=== PATIENT | female | born 1940 | race Caucasian/White ===

== ENCOUNTER 2020-03-19 23:49 | Inpatient (IN) | payer OTHER ==
[~2020-03-19] VITALS: Ht 162.6 cm; Wt 79.4 kg
[2020-03-19 23:58] VITALS: BP 172/63
[2020-03-20 00:25] LABS: ABSOLUTE BASOPHILS 0.1 thou/uL (0.0-0.2); ABSOLUTE EOSINOPHILS 0.2 thou/uL (0.0-0.7); ABSOLUTE LYMPHOCYTES 1.7 thou/uL (0.8-5.3); ABSOLUTE MONOCYTES 0.6 thou/uL (0.0-1.2); ABSOLUTE NEUTROPHILS 3.7 thou/uL (1.6-8.1); EOSINOPHILS 3.4 %; HEMATOCRIT 33.1 % (37.0-47.0); HEMOGLOBIN 11.4 gm/dL (12.0-15.0); LYMPHOCYTES 26.7 %; MCH 31.4 pg (26.0-34.0); MCHC 34.5 g/dL (28.0-37.0); MONOCYTES 9.6 %; MPV 10.1 fl. (7.2-11.1); NUCLEATED RBCS 0 /100WBC; PLATELET COUNT* 130 thou/uL (150-400); POLYS 59.3 %; RBC 3.64 mil/uL (4.20-5.00); RDW-CV 14.5 % (10.5-14.5); WBC 6.3 thou/uL (4.0-11.0)
[2020-03-20 00:38] LABS: APTT 33.9 Seconds (25.0-31.3); PROTIME 20.2 Seconds (9.20-11.50)
[2020-03-20 00:49] LABS: CALCIUM 8.5 mg/dL (8.5-10.1); CREATININE 1.2 mg/dL (0.6-1.3); POTASSIUM 5.1 mmol/L (3.5-5.1)
[2020-03-20 01:00] LABS: ALBUMIN 3.6 g/dL (3.4-5.0); TOTAL BILIRUBIN 0.3 mg/dL (<0.1-1.0); TOTAL PROTEIN 6.2 g/dL (6.4-8.2)
[2020-03-20] MEDS ORDERED: LIPITOR40 MG PO (01:00)
[2020-03-20] MEDS ORDERED: LORATIDINE 10 M10 M1 PO (01:00)
[2020-03-20] MEDS ORDERED: DULOXETINE HCL60 MG PO (01:01)
[2020-03-20] MEDS ORDERED: CRAMP TABLET1 EACH PO (01:01)
[2020-03-20] MEDS ORDERED: PROAIR HFA8.5 GM INH (01:01)
[2020-03-20] MEDS ORDERED: FISH OIL 1,0001 EAC9 PO (01:02)
[2020-03-20] MEDS ORDERED: HAIR, SKIN & N1 EAC2 PO (01:03)
[2020-03-20] MEDS ORDERED: NEURONTIN 300M300 M2 PO (01:03)
[2020-03-20] MEDS ORDERED: SYNTHROID137 MC1 PO (01:04)
[2020-03-20] MEDS ORDERED: METFORMIN HCL500 M3 PO (01:05)
[2020-03-20] MEDS ORDERED: COZAAR 25 MG TA25 M1 PO (01:05)
[2020-03-20] MEDS ORDERED: MONTELUKAST SODI4 M1 PO (01:06)
[2020-03-20] MEDS ORDERED: SUPER THERAVIT1 EACH PO (01:06)
[2020-03-20] MEDS ORDERED: OMEPRAZOLE40 MG PO (01:07)
[2020-03-20] MEDS ORDERED: EVISTA60 MG PO (01:08)
[2020-03-20] MEDS ORDERED: ROPINIROLE HCL0.5 MG PO (01:08)
[2020-03-20] MEDS ORDERED: PROPRANOLOL PO (01:08)
[2020-03-20] MEDS ORDERED: INCRUSE ELLI62.5 MCG INH (01:09)
[2020-03-20] MEDS ORDERED: JANUVIA 50 MG T50 MG PO (01:09)
[2020-03-20] MEDS ORDERED: VITAMIN C1000 MG PO (01:10)
[2020-03-20] MEDS ORDERED: VITAMIN B COMP1 EACH PO (01:10)
[2020-03-20] MEDS ORDERED: VITAMIN D3 COM1 EACH PO (01:11)
[2020-03-20] MEDS ORDERED: WARFARIN SODIUM5 MG PO (01:11)
[2020-03-20] MEDS ORDERED: JANTOVEN7.5 MG PO (01:11)
[2020-03-20 02:35] VITALS: BP 134/46
[2020-03-20 02:55] VITALS: BP 135/49
[2020-03-20 08:00] VITALS: BP 122/58
[2020-03-20 12:23] VITALS: BP 134/50
[2020-03-20 13:27] LABS: INR 2.1; PROTIME 21.2 Seconds (9.20-11.50)
--- NOTE | 2020-03-20 14:33 | EKG ---
[place] [address] ELECTROCARDIOGRAM REPORT Name: JENNY QUEVEDO Room: [address] M.R.#: [id number] Admission: 03/20/20 Attend Phys: Riaz Machado, Discharge: Date of : 38 Date of Service: 03/19/20 2353 Report #: [id number] THIS REPORT FOR: //name// [facility] ED Test Date: 2020-03-19 Test Time: 23:53:58 Pat Name: JENNY QUEVEDO Department: Room: [facility] Gender: F Supervisor Assembly Room: : 1940 Requested By: Suzi Wagoner Order Number: [id number] MD: Bassam Martínez Measurements Intervals [place] Rate: 81 P: 58 [place]: 186 QRS: -14 QRSD: 98 T: 140 QT: 375 QTc: 436 Interpretive Statements Sinus rhythm Probable left atrial enlargement Repol abnrm, severe global ischemia (LM/MVD) No previous ECG available for comparison Electronically Signed On 03-20-2020 14:33:29 CDT by Bassam Martínez [email or web address] <ELECTRONICALLY SIGNED> By: Bassam Martínez MD, FACC 03/20/20 1433 2353 2353 Bassam Martínez MD, [facility] /EPI
--- NOTE | 2020-03-20 14:35 | EKG ---
[place] [address] ELECTROCARDIOGRAM REPORT Name: JENNY QUEVEDO Room: [address] M.R.#: [id number] Admission: 03/20/20 Attend Phys: Riaz Machado, Discharge: Date of : 38 Date of Service: 03/20/20 1323 Report #: [id number] THIS REPORT FOR: //name// [facility] Test Date: 2020-03-20 Test Time: 13:23:29 Pat Name: JENNY QUEVEDO Department: Room: [address] Gender: F Middle School Assistant Principal: AMY : 1940 Requested By: Tori Egan Order Number: [id number] Reading MD: Bassam Martínez Measurements Intervals [place] Rate: 74 P: 15 [place]: 191 QRS: 81 QRSD: 92 T: 266 QT: 382 QTc: 424 Interpretive Statements Sinus rhythm Borderline right axis deviation Repol abnrm suggests ischemia, diffuse leads Compared to ECG 03/19/2020 23:53:58 No significant changes Electronically Signed On 03-20-2020 14:35:25 CDT by Bassam Martínez [email or web address] <ELECTRONICALLY SIGNED> By: Bassam Martínez MD, FAC 03/20/20 1435 1323 1323 Bassam Martínez MD, [facility] /EPI
[2020-03-20 16:00] VITALS: BP 120/52
[2020-03-20 16:02] LABS: CHOLESTEROL 172 mg/dL (<200); HDL CHOLESTEROL 50 mg/dL (>40); LDL CHOLESTEROL 104 mg/dL (<100); TC:HDL 3.4 Ratio (Not establshd); TRIGLYCERIDE 93 mg/dL (<150); VLDL 19 mg/dL (<40)
[2020-03-20 16:03] LABS: SERUM ASSESSMENT Clear
[2020-03-20 20:00] VITALS: BP 143/56
[2020-03-21] VITALS (13 sets, daily range): BP systolic 121–172; BP diastolic 42–73
[2020-03-21 05:21] LABS: ABSOLUTE EOSINOPHILS 0.2 thou/uL (0.0-0.7); ABSOLUTE LYMPHOCYTES 1.6 thou/uL (0.8-5.3); ABSOLUTE MONOCYTES 0.5 thou/uL (0.0-1.2); ABSOLUTE NEUTROPHILS 2.9 thou/uL (1.6-8.1); BASOPHILS 0.8 %; EOSINOPHILS 3.9 %; HEMOGLOBIN 11.1 gm/dL (12.0-15.0); LYMPHOCYTES 30.6 %; MCH 31.7 pg (26.0-34.0); MCHC 34.7 g/dL (28.0-37.0); MCV 91.6 fL (80.0-100.0); MONOCYTES 9.7 %; NUCLEATED RBCS 0 /100WBC; PLATELET COUNT* 119 thou/uL (150-400); RDW-CV 14.6 % (10.5-14.5); WBC 5.3 thou/uL (4.0-11.0)
[2020-03-21 05:23] LABS: PROTIME 20.1 Seconds (9.20-11.50)
[2020-03-21 06:02] LABS: ALBUMIN 3.4 g/dL (3.4-5.0); CALCIUM 8.5 mg/dL (8.5-10.1); CREATININE 1.1 mg/dL (0.6-1.3); TOTAL BILIRUBIN 0.5 mg/dL (<0.1-1.0); TOTAL PROTEIN 5.9 g/dL (6.4-8.2)
[2020-03-22 03:48] VITALS: BP 142/70
[2020-03-22 04:44] LABS: HEMATOCRIT 30.4 % (37.0-47.0); HEMOGLOBIN 10.5 gm/dL (12.0-15.0); MCH 31.1 pg (26.0-34.0); MCHC 34.5 g/dL (28.0-37.0); MCV 90.4 fL (80.0-100.0); MPV 9.4 fl. (7.2-11.1); RBC 3.36 mil/uL (4.20-5.00); RDW-CV 14.2 % (10.5-14.5); WBC 6.7 thou/uL (4.0-11.0)
[2020-03-22 05:04] LABS: ALBUMIN 3.1 g/dL (3.4-5.0); CALCIUM 7.8 mg/dL (8.5-10.1); POTASSIUM 4.1 mmol/L (3.5-5.1); TOTAL BILIRUBIN 0.9 mg/dL (<0.1-1.0); TOTAL PROTEIN 5.9 g/dL (6.4-8.2); TROPONIN-I LEVEL 0.32 ng/mL (<0.06)
[2020-03-22 08:00] VITALS: BP 159/63
[2020-03-22] MEDS ORDERED: BRILINTA90 MG PO (08:23)
[2020-03-22] MEDS ORDERED: METOPROLOL SUCC25 M1 PO (08:23)
[2020-03-22 10:22] LABS: INR 1.2; PROTIME 12.7 Seconds (9.20-11.50)
[2020-03-22 12:28] VITALS: BP 130/59
[2020-03-22 12:29] VITALS: BP 121/51
--- NOTE | 2020-03-23 10:41 | CARD ---
[address] [address] CARDIAC CATH REPORT Name: JENNY QUEVEDO Room: [address]#: [id number] Admission: 03/21/20 Attend Phys: Riaz Machado MD Discharge: 03/22/20 Date of : 38 Report #: [id number] THIS REPORT FOR: //name// cc: Terri Greenberg Linda J. DO ~ APPROVED REPORT Study performed: 03/21/2020 14:58:51 Patient Details The patient is a 79 year-old female Event Personnel Khang Fleming Woods Overseer, Ariana Argueta RN, Magdi Hamlin RTR Scrub, Gerald Conley TAPE CUTTING MACHINE OPERATOR Monitor Procedures Performed Left heart catheterization selective coronary arteriography and PCI with deployment sequential drug-eluting stents at the site of 80% mid LAD stenosis Indication Unstable angina Risk Factors Hypercholesterolemia, Hypertension Admission/Lab Medications/Medications given during procedure Angiomax bolus and infusion Procedure Narrative The patient was brought electively to the Cardiac Catheterization Laboratory and was prepped and draped in a sterile manner. The right femoral was infiltrated with 2% Lidocaine subcutaneous anesthesia. A [place] 6 FR sheath was inserted into the right femoral artery. Coronary angiography was performed using coronary diagnostic catheters. The right coronary system was accessed and visualized with a JR4 6em6FBS 6fr catheter. The left coronary system was accessed and visualized with a JL4 6fr catheter. The left ventricle was accessed and visualized with a JR4 6fr - Pressures only catheter. Left ventricular/Aortic Valve gradient assessed via catheter pullback. Pre-demployment femoral angiogram was performed . Closure device was deployed with a Fr Angioseal STS 6Fr. [place] [address] CARDIAC CATH REPORT Name: JENNY QUEVEDO Room: [address]#: [id number] Admission: 03/21/20 Attend Phys: Riaz Machado MD Discharge: 03/22/20 Date of : 39 Report #: [id number] Intraoperative Conscious Sedation Sedation start time: 1609 Case end Time: 1706 Fentanyl 50 mcg Versed 2 mg Fluoro Time: 10.8 minutes Dose: DAP [id number] cGycm2 1751 mGy Contrast Type and Amount: Visipaque 290 ml Diagnostic Cath Left Main 0% narrowing LAD 80% mid vessel stenosis with 40% distal LAD narrowing Circumflex 30% proximal narrowing with tandem 50 and 70% stenoses of the first marginal branch of the dominant circumflex with 50% narrowing of the second marginal branch Right Coronary Nondominant vessel with 40% tubular proximalmid vessel narrowing Left Ventriculography Left Ventriculography was not performed. Hemodynamics The aortic pressure is 123/45 mmHg with a mean of 74 mmHg. The left ventricular pressure is 130/-12 mmHg with a mean of mmHg. The left ventricular end diastolic pressure is 13 mmHg. There was no gradient across the aortic valve upon pullback. PCI Technique Lesion Anticoagulation was achieved with Angiomax. Patient was preloaded with Angiomax IV 12 ml. Percutaneous coronary intervention was performed on the mid left anterior descending artery segment. The lesion stenosis prior to intervention was 80% with CLEO 3 flow. A 6FR LAUNCHER EBU 3.5 Guide Catheter was used to engage the ostium. A IG: BMW 190cm Interventional Guidewire was used to cross the lesion. BALLOON DILATION A Balloon catheter Trek RX 2.25 X 12 was inserted and inflated up to 15.00atm for 14seconds. Additional Inflation: 17.00atm for 10seconds. STENT DEPLOYMENT A stent [place] RX Stent 2.0X15mm, 2.0x8 was inserted and inflated up to 16.00, 14atm for 9, 10seconds. Additional Inflation: 20.00atm [place] 10[place] [address] CARDIAC CATH REPORT Name: SAEJENNY F Room: [address]#: [id number] Admission: 03/21/20 Attend Phys: Riaz Machado MD Discharge: 03/22/20 Date of : 38 Report #: [id number] Final angiography reveals 0 % stenosis with CLEO 3 flow. Conclusion 1. Significant coronary artery disease characterized by the following: A 80% mid LAD stenosis with 40% distal LAD narrowing B 30% proximal circumflex narrowing, this being a dominant vessel with tandem 50 and 70% first marginal stenosis and 50% second marginal stenosis C modest size nondominant right coronary with 40% tubular proximalmid vessel narrowing 2. No significant gradient on pullback across the bioprosthetic aortic valve 3. Normal left-sided hemodynamic study 4. Successful PCI with deployment of sequential drug-eluting stents at the site of 80% mid LAD stenosis with 0% residual narrowing and CLEO-3 flow to the distal vessel Recommendations Cardiac Risk Reduction Program Aggressive Medical Therapy Medications Administered Prasugrel <ELECTRONICALLY SIGNED> By: Khang Fleming MD, FACC 03/23/20 1041 104 1041Khang Fleming MD, FACC /INF
== END 2020-03-22 13:20 | disposition home or self-care (01) | DRG 247 ==
LOC: M.ERS 23:49 → M.2W 03-20 01:14 → M.TBA-ER 03-20 01:14 → M.2W 03-20 02:44
PROVIDERS: Internal Medicine; Nurse Practitioner; Personal Emergency Response Attendant; Registered Nurse; ADMIT Internal Medicine; ATTEND Internal Medicine
PROC: 027035Z Dilation of Coronary Artery, One Artery with Two Drug-eluting Intraluminal Devices, Percutaneous Approach (ICD-10-PCS; principal; 2020-03-21)
PROC: 4A023N7 Measurement of Cardiac Sampling and Pressure, Left Heart, Percutaneous Approach (ICD-10-PCS; principal; 2020-03-21)
PROC: B211YZZ Fluoroscopy of Multiple Coronary Arteries using Other Contrast (ICD-10-PCS; principal; 2020-03-21)
DX: I21.4 Non-ST elevation (NSTEMI) myocardial infarction (principal); D68.69 Other thrombophilia; J44.9 Chronic obstructive pulmonary disease, unspecified; I10 Essential (primary) hypertension; E11.9 Type 2 diabetes mellitus without complications; E78.00 Pure hypercholesterolemia, unspecified; G56.01 Carpal tunnel syndrome, right upper limb; E78.2 Mixed hyperlipidemia; Z20.828 Contact with and (suspected) exposure to other viral communicable diseases; E03.9 Hypothyroidism, unspecified; I48.0 Paroxysmal atrial fibrillation; I25.110 Atherosclerotic heart disease of native coronary artery with unstable angina pectoris; Z79.01 Long term (current) use of anticoagulants; Z79.84 Long term (current) use of oral hypoglycemic drugs; Z79.899 Other long term (current) drug therapy; Z95.2 Presence of prosthetic heart valve; Z88.8 Allergy status to other drugs, medicaments and biological substances; Z88.0 Allergy status to penicillin; Z87.891 Personal history of nicotine dependence

== ENCOUNTER → 2020-05-05 | Outpatient (CLI) | payer OTHER ==
[~2020-05-05] MED LIST: BRILINTA90 MG PO; COZAAR 25 MG TA25 M1 PO; CRAMP TABLET1 EACH PO; DULOXETINE HCL60 MG PO; EVISTA60 MG PO; FISH OIL 1,0001 EAC9 PO; FUROSEMIDE 40 M40 M1 PO; HAIR, SKIN & N1 EAC2 PO; INCRUSE ELLI62.5 MCG INH; JANTOVEN7.5 MG PO; JANUVIA 50 MG T50 MG PO; LIPITOR40 MG PO; LIPITOR80 MG PO; LORATIDINE 10 M10 M1 PO; METFORMIN HCL500 M3 PO; METOPROLOL SUCC25 M1 PO; MONTELUKAST SODI4 M1 PO; NEURONTIN 300M300 M2 PO; OMEPRAZOLE40 MG PO; PLAVIX 75 MG TA75 M1 PO; PROAIR HFA8.5 GM INH; PROPRANOLOL PO; PROVENTIL HFA6.7 G1 PO; ROPINIROLE HCL0.5 MG PO; SUPER THERAVIT1 EACH PO; SYNTHROID137 MC1 PO; VITAMIN B COMP1 EACH PO; VITAMIN C1000 MG PO; VITAMIN D3 COM1 EACH PO; WARFARIN SODIUM5 MG PO
== END ==
LOC: M.PC 10:30
PROVIDERS: ATTEND Physical Medicine & Rehabilitation
DX: M47.816 Spondylosis without myelopathy or radiculopathy, lumbar region (principal); I25.10 Atherosclerotic heart disease of native coronary artery without angina pectoris; I48.91 Unspecified atrial fibrillation; E11.9 Type 2 diabetes mellitus without complications; I25.2 Old myocardial infarction; M81.8 Other osteoporosis without current pathological fracture; Z98.1 Arthrodesis status; Z68.29 Body mass index [BMI] 29.0-29.9, adult; Z88.8 Allergy status to other drugs, medicaments and biological substances

== ENCOUNTER 2020-07-22 19:20 | Emergency (ER) | payer OTHER ==
[~2020-07-22] VITALS: Ht 162.6 cm; Wt 70.3 kg
[2020-07-22 20:08] LABS: ABSOLUTE BASOPHILS 0.1 thou/uL (0.0-0.2); ABSOLUTE EOSINOPHILS 0.2 thou/uL (0.0-0.7); ABSOLUTE LYMPHOCYTES 1.7 thou/uL (0.8-5.3); ABSOLUTE MONOCYTES 0.6 thou/uL (0.0-1.2); ABSOLUTE NEUTROPHILS 6.6 thou/uL (1.6-8.1); BASOPHILS 1.2 %; EOSINOPHILS 2.2 %; HEMATOCRIT 35.4 % (37.0-47.0); HEMOGLOBIN 11.8 gm/dL (12.0-15.0); LYMPHOCYTES 18.8 %; MCH 29.5 pg (26.0-34.0); MCHC 33.2 g/dL (28.0-37.0); MCV 88.9 fL (80.0-100.0); MONOCYTES 6.1 %; MPV 8.5 fl. (7.2-11.1); NUCLEATED RBCS 0 /100WBC; PLATELET COUNT* 319 thou/uL (150-400); POLYS 71.7 %; RBC 3.98 mil/uL (4.20-5.00); RDW-CV 15.4 % (10.5-14.5); WBC 9.2 thou/uL (4.0-11.0)
[2020-07-22 20:18] LABS: CALCIUM 8.7 mg/dL (8.5-10.1); CREATININE 2.5 mg/dL (0.6-1.3); POTASSIUM 4.8 mmol/L (3.5-5.1)
[2020-07-22 20:19] LABS: INR 1.8; PROTIME 18.2 Seconds (9.20-11.50)
[2020-07-22 20:29] LABS: ALBUMIN 3.6 g/dL (3.4-5.0); TOTAL BILIRUBIN 0.5 mg/dL (<0.1-1.0); TOTAL PROTEIN 7.4 g/dL (6.4-8.2)
[2020-07-22 20:40] LABS: URINE BILIRUBIN NEGATIVE (Negative); URINE BLOOD NEGATIVE (Negative); URINE CLARITY CLEAR; URINE COLOR YELLOW; URINE GLUCOSE-RANDOM NEGATIVE (Negative); URINE KETONES NEGATIVE (Negative); URINE LEUKOCYTES-REFLEX NEGATIVE (Negative); URINE NITRITE-REFLEX NEGATIVE (Negative); URINE PROTEIN NEGATIVE (Negative); URINE SPECIFIC GRAVITY 1.015 (1.005-1.030); URINE UROBILINOGEN 0.2 E.U./dl (0.2-1.0)
[2020-07-22 21:55] VITALS: BP 96/58
--- NOTE | 2020-07-23 09:53 | EKG ---
[place] [address] ELECTROCARDIOGRAM REPORT Name: JENNY QUEVEDO Room: [facility]#: [id number] Admission: 07/22/20 Attend Phys: Discharge: 07/22/20 Date of : 38 Date of Service: 07/22/201950 Report #: [id number] THIS REPORT FOR: //name// [facility] ED Test Date: 2020-07-22 Test Time: 19:51:14 Pat Name: JENNY QUEVEDO Department: Room: Gender: Skiagrapher: IRON : 1940 Requested By: Suzi Wagoner Order Number: [id number] MD: Khang Fleming Measurements Intervals [place] Rate: 78 P: 69 DC: 189 QRS: -3 QRSD: 103 T: 148 QT: 402 QTc: 458 Interpretive Statements Sinus rhythm Probable LVH with secondary repol abnrm Compared to ECG 03/20/2020 13:23:29 Possible ischemia no longer present Electronically Signed On 07-23-2020 9:53:34 WELDER FIRST CLASS by Khang Fleming [email or web address] <ELECTRONICALLY SIGNED> By: Khang Fleming MD, [facility] 07/23/20 0953 50 50 Khang Fleming MD, [facility] /EPI
== END 2020-07-22 21:55 | disposition home or self-care (01) ==
LOC: M.ERS 19:20
PROVIDERS: Personal Emergency Response Attendant
DX: R33.9 Retention of urine, unspecified (principal); N28.9 Disorder of kidney and ureter, unspecified; R79.89 Other specified abnormal findings of blood chemistry; J44.9 Chronic obstructive pulmonary disease, unspecified; E78.00 Pure hypercholesterolemia, unspecified; E11.9 Type 2 diabetes mellitus without complications; I50.9 Heart failure, unspecified; Z79.899 Other long term (current) drug therapy; Z79.01 Long term (current) use of anticoagulants; Z88.6 Allergy status to analgesic agent; Z88.5 Allergy status to narcotic agent; Z88.0 Allergy status to penicillin; Z88.8 Allergy status to other drugs, medicaments and biological substances

== ENCOUNTER 2020-07-23 21:56 | Emergency (ER) | payer OTHER ==
[~2020-07-23] VITALS: Ht 162.6 cm; Wt 69.4 kg
[2020-07-23 22:34] LABS: ABSOLUTE BASOPHILS 0.1 thou/uL (0.0-0.2); ABSOLUTE EOSINOPHILS 0.2 thou/uL (0.0-0.7); ABSOLUTE LYMPHOCYTES 1.8 thou/uL (0.8-5.3); ABSOLUTE MONOCYTES 0.5 thou/uL (0.0-1.2); ABSOLUTE NEUTROPHILS 6.9 thou/uL (1.6-8.1); BASOPHILS 0.8 %; EOSINOPHILS 1.7 %; HEMATOCRIT 34.9 % (37.0-47.0); HEMOGLOBIN 11.8 gm/dL (12.0-15.0); LYMPHOCYTES 18.9 %; MCH 29.9 pg (26.0-34.0); MCHC 33.8 g/dL (28.0-37.0); MCV 88.6 fL (80.0-100.0); MONOCYTES 5.6 %; MPV 8.4 fl. (7.2-11.1); NUCLEATED RBCS 0 /100WBC; PLATELET COUNT* 305 thou/uL (150-400); RBC 3.94 mil/uL (4.20-5.00); RDW-CV 15.3 % (10.5-14.5); WBC 9.4 thou/uL (4.0-11.0)
[2020-07-23 22:34] LABS: URINE BILIRUBIN NEGATIVE (Negative); URINE BLOOD 3+ (Negative); URINE CLARITY SL CLOUDY; URINE COLOR YELLOW; URINE GLUCOSE-RANDOM NEGATIVE (Negative); URINE KETONES NEGATIVE (Negative); URINE LEUKOCYTES-REFLEX NEGATIVE (Negative); URINE NITRITE-REFLEX NEGATIVE (Negative); URINE PROTEIN 2+ (Negative); URINE UROBILINOGEN 0.2 E.U./dl (0.2-1.0)
[2020-07-23 22:36] LABS: CALCIUM 9.3 mg/dL (8.5-10.1); POTASSIUM 4.7 mmol/L (3.5-5.1)
[2020-07-23 22:38] LABS: INR 1.9; PROTIME 19.7 Seconds (9.20-11.50)
[2020-07-23 22:40] LABS: ALBUMIN 3.6 g/dL (3.4-5.0); TOTAL BILIRUBIN 0.4 mg/dL (<0.1-1.0); TOTAL PROTEIN 7.3 g/dL (6.4-8.2)
[2020-07-23 22:41] LABS: MUCUS None Seen strn/LPF (None Seen); SQUAMOUS 4-10 Moderate /LPF (0-3); URINE RBC >20 Many /HPF (0-2)
[2020-07-23 22:42] LABS: CRYSTALS None Seen /LPF (None Seen); HYALINE CASTS 0-3 Few /LPF (None Seen); URINE WBC-REFLEX 0-5 Rare /HPF (0-5)
[2020-07-23 22:43] LABS: BACTERIA-REFLEX None Seen /HPF (None Seen)
[2020-07-24 00:53] VITALS: BP 108/49
== END 2020-07-24 00:53 | disposition home or self-care (01) ==
LOC: M.ERS 21:56
PROVIDERS: Emergency Medicine
DX: R31.9 Hematuria, unspecified (principal); E87.1 Hypo-osmolality and hyponatremia; J44.9 Chronic obstructive pulmonary disease, unspecified; E78.00 Pure hypercholesterolemia, unspecified; E11.9 Type 2 diabetes mellitus without complications; I11.0 Hypertensive heart disease with heart failure; I50.9 Heart failure, unspecified; Z79.899 Other long term (current) drug therapy; Z79.01 Long term (current) use of anticoagulants; Z88.6 Allergy status to analgesic agent; Z88.5 Allergy status to narcotic agent; Z88.8 Allergy status to other drugs, medicaments and biological substances; Z88.0 Allergy status to penicillin

== ENCOUNTER 2021-03-08 23:10 | Observation (INO) | payer OTHER ==
[~2021-03-08] VITALS: Ht 165.1 cm; Wt 73.5 kg
[2021-03-08 23:28] VITALS: BP 164/65
[2021-03-08] MEDS ORDERED: KLOR-CON M2020 MEQ PO (23:35)
[2021-03-08] MEDS ORDERED: COZAAR 25 MG TA25 MG PO (23:36)
[2021-03-08] MEDS ORDERED: REFRESH RELIEVA10 M1 EA. EYE (23:40)
[2021-03-08] MEDS ORDERED: CLARITIN10 M2 PO (23:41)
[2021-03-08] MEDS ORDERED: DULCOLAX STOOL100 M1 PO (23:43)
[2021-03-08] MEDS ORDERED: DRIZALMA SPRINK60 MG PO (23:43)
[2021-03-08] MEDS ORDERED: PLAVIX 75 MG TA75 MG PO (23:44)
[2021-03-08] MEDS ORDERED: VITAMIN D3125 MC1 PO (23:45)
[2021-03-08] MEDS ORDERED: PROPRANOLOL 20M20 M1 PO (23:45)
[2021-03-08] MEDS ORDERED: FARXIGA10 MG PO (23:48)
[2021-03-08] MEDS ORDERED: TRILOGY (23:48)
[2021-03-08] MEDS ORDERED: FLOVENT HFA 4444 MCG INH (23:49)
[2021-03-08] MEDS ORDERED: TRELEGY ELLIPT1 EACH INH (23:49)
[2021-03-09 00:26] LABS: ABSOLUTE BASOPHILS 0.1 thou/uL (0.0-0.2); ABSOLUTE EOSINOPHILS 0.2 thou/uL (0.0-0.7); ABSOLUTE LYMPHOCYTES 1.2 thou/uL (0.8-5.3); ABSOLUTE MONOCYTES 0.5 thou/uL (0.0-1.2); ABSOLUTE NEUTROPHILS 3.2 thou/uL (1.6-8.1); EOSINOPHILS 4.7 %; HEMATOCRIT 31.1 % (37.0-47.0); HEMOGLOBIN 10.1 gm/dL (12.0-15.0); LYMPHOCYTES 22.8 %; MCHC 32.5 g/dL (28.0-37.0); MONOCYTES 10.1 %; MPV 8.8 fl. (7.2-11.1); NUCLEATED RBCS 0 /100WBC; PLATELET COUNT* 150 thou/uL (150-400); POLYS 61.4 %; RDW-CV 15.7 % (10.5-14.5); WBC 5.1 thou/uL (4.0-11.0)
[2021-03-09 00:38] LABS: CALCIUM 8.7 mg/dL (8.5-10.1); CREATININE 1.4 mg/dL (0.6-1.3); POTASSIUM 4.1 mmol/L (3.5-5.1)
[2021-03-09 00:49] LABS: ALBUMIN 3.4 g/dL (3.4-5.0); MAGNESIUM 1.6 mg/dL (1.8-2.4); TOTAL BILIRUBIN 0.3 mg/dL (<0.1-1.0); TOTAL PROTEIN 6.3 g/dL (6.4-8.2)
[2021-03-09 01:30] LABS: URINE BILIRUBIN NEGATIVE (Negative); URINE BLOOD NEGATIVE (Negative); URINE CLARITY CLEAR; URINE COLOR YELLOW; URINE GLUCOSE-RANDOM 3+ (Negative); URINE KETONES NEGATIVE (Negative); URINE LEUKOCYTES-REFLEX 1+ (Negative); URINE NITRITE-REFLEX NEGATIVE (Negative); URINE PROTEIN NEGATIVE (Negative); URINE UROBILINOGEN 0.2 E.U./dl (0.2-1.0)
[2021-03-09 02:11] LABS: CASTS None Seen /LPF (None Seen); SQUAMOUS 4-10 Moderate /LPF (0-3)
[2021-03-09 02:12] LABS: URINE WBC-REFLEX 6-15 Few /HPF (0-5)
[2021-03-09 02:13] LABS: CRYSTALS None Seen /LPF (None Seen); URINE RBC 0-2 Rare /HPF (0-2)
[2021-03-09 04:10] LABS: INR 1.7; PROTIME 17.2 Seconds (9.20-11.50)
[2021-03-09 06:38] VITALS: BP 109/40
[2021-03-09 10:30] VITALS: BP 124/56
--- NOTE | 2021-03-09 10:57 | EKG ---
[place] [address] ELECTROCARDIOGRAM REPORT Name: JENNY QUEVEDO Room: [address] M.R.#: [id number] Admission: 03/09/21 Attend Phys: Chris Joy Discharge: Date of : 38 Date of Service: 03/08/21 2316 Report #: [id number] THIS REPORT FOR: //name// [facility] ED Test Date: 2021-03-08 Test Time: 23:16:46 Pat Name: JENNY QUEVEDO Department: Room: [facility] Gender: F Cloth Weigher: MR : 1940 Requested By: Cecilia Katz Order Number: [id number] MD: Joseph Schulz Measurements Intervals [place] Rate: 94 P: 93 NH: 72 QRS: -8 QRSD: 100 T: 153 QT: 369 QTc: 462 Interpretive Statements Sinus rhythm Short NH interval LVH with secondary repolarization abnormality Baseline wander in lead(s) II,III,aVF,V5,V6 Compared to ECG 07/22/2020 19:51:14 Short NH interval now present Electronically Signed On 03-09-2021 10:57:04 CDT by Joseph Schulz [email or web address] <ELECTRONICALLY SIGNED> By: Joseph Schulz MD, [facility] 03/09/21 1057 2316 2316 Joseph Schulz MD, [facility] /EPI
[2021-03-09 11:12] VITALS: BP 124/56
[2021-03-09 12:34] VITALS: BP 156/62
--- NOTE | 2021-03-09 14:41 | NUR ---
CM COMPLETED ASSESSEMENT WITH PT AND DTR AT BEDSIDE. PT LIVES WITH DTR, PT HAS WALKER SHE USES "SOMETIME." PT DOES NOT HAVE HH, BUT USED [facility]. PT DENIES HX WITH SNF. PT IS INDEPENDENT ADLS, ACTIVE AND COMPLETES OWN CHORES. PT HAS NO CM D/C NEEDS AT THIS TIME.
[2021-03-09 17:35] VITALS: BP 156/62
[2021-03-09 17:50] VITALS: BP 156/62
--- NOTE | 2021-03-10 11:11 | CON ---
[facility] [address] [place] [address] CONSULTATION Name: JENNY QUEVEDO Room: [address] Philipp Pathak#: [id number] Admission: 03/09/21 Attend Phys: Junaid Stone Discharge: 03/09/21 Date of : 38 Report #: [id number] THIS REPORT FOR: cc: Terri Greenberg,Terri Reynolds,Joseph Davalos MD [facility] ~ DATE OF CONSULTATION: 03/09/2021 HISTORY OF PRESENT ILLNESS: The patient is an 80-year-old single white female who I was asked to see in the emergency room today after she complained of chest pain. The patient states she has had a heart murmur for years. Finally, 6 years ago, she underwent aortic valve replacement using a tissue valve at [place]. In October of this year, she apparently had a heart attack and had two coronary stents placed at [place]. She has done well since that time. However, she is not very active at this time. She was doing well until yesterday. She [place] when she felt a pressure in her chest. It seemed to go into her back. She denied diaphoresis, nausea, shortness of breath. She had no recent fever, cough or bleeding. She denies any trauma to her chest or rash. She took a nitroglycerin, seemed to help. However, the pressures tended to come and go. After she got home, she called the EMS. She was brought here to [place] 10:00 last night. Today, she has had no further chest pressure. She denies any palpitations, syncope. PAST MEDICAL HISTORY: She had back surgery, cataract extraction, hysterectomy, colon resection, hypertension, diabetes. CURRENT MEDICATIONS: Consists of an inhaler, Lipitor, Plavix, Trelgey, Lasix, Neurontin, Synthroid, losartan. She is on warfarin. ALLERGIES: She has a previous intolerance to CODEINE and PENICILLIN. FAMILY HISTORY: Her father had a heart attack. SOCIAL HISTORY: She is , lives with daughter in [place]. Quit smoking years ago. No alcohol abuse. REVIEW OF SYSTEMS: She has no history of stroke, liver disease. She has chronic kidney disease. She wears glasses. No history of cancer. No psychiatric illness. No chronic skin condition. PHYSICAL EXAMINATION: GENERAL: Revealed an elderly, frail-appearing female, lying in bed. She appeared in no distress. VITAL SIGNS: She had a blood pressure 140/60, pulse 70. She is afebrile. HEENT: She was anicteric. Conjunctivae are pink[place] [address] CONSULTATION Name: JENNY QUEVEDO Room: [address] Lawson#: [id number] Admission: 03/09/21 Attend Phys: Junaid Stone Discharge: 03/09/21 Date of : 38 Report #: [id number] NECK: Veins not distended. No carotid bruits. NECK: Supple. CHEST: Clear to auscultation. HEART: Regular rate and rhythm. Grade II systolic ejection murmur. ABDOMEN: Soft. EXTREMITIES: Had no edema. Dorsalis pedis pulse 1+ . SKIN: Cool and dry. NEUROLOGIC: Nonfocal. LABORATORY DATA: Her ECG showed a sinus rhythm, left ventricular hypertrophy, repolarization changes. Her workup, she had a chest x-ray last night that showed mild vascular congestion. LABORATORY DATA: Sodium 144, creatinine 1.4, it has been as high as 2.5 in 2020. Her troponins, all less than 0.06. BNP 1099. Her white blood cell count 5.1; hematocrit 31, it was 33 back in 2020. Her COVID antigen stat test was negative. Urinalysis was negative for blood. Her INR was 1.7. IMPRESSION AND RECOMMENDATIONS: 1. Chest pressure, reason unclear. No evidence of pneumonia, myocardial infarction. Possible angina. I would continue medical therapy. I would not recommend stress testing at this time. 2. Previous replacement of aortic valve using a tissue valve. 3. Previous stents. The patient is on Plavix. 4. Hypertension. The patient is on ARB. 5. Diabetes. 6. Hyperlipidemia. The patient is on a statin drug. 7. History of asthma. 8. Chronic kidney disease. 9. Anemia. No history of bleeding. 10. Use of warfarin, reason unclear. No evidence of metallic valve, nor history of atrial fibrillation or stroke. I would defer to her primary care physician. <ELECTRONICALLY SIGNED> By: Joseph Schulz MD, FACC 03/10/21 1111 1529 2130Joseph Schulz MD, FAC /nt
== END 2021-03-09 14:55 | disposition home or self-care (01) ==
LOC: M.ERS 23:10 → M.TBA-ER 03-09 02:58
PROVIDERS: Emergency Medicine; ADMIT Internal Medicine; ATTEND Internal Medicine
DX: I20.9 Angina pectoris, unspecified (principal); E03.9 Hypothyroidism, unspecified; Z20.822 Contact with and (suspected) exposure to COVID-19; J44.9 Chronic obstructive pulmonary disease, unspecified; E78.00 Pure hypercholesterolemia, unspecified; E11.9 Type 2 diabetes mellitus without complications; I50.9 Heart failure, unspecified; Z87.891 Personal history of nicotine dependence; Z88.6 Allergy status to analgesic agent; Z88.5 Allergy status to narcotic agent; Z91.010 Allergy to peanuts; Z88.8 Allergy status to other drugs, medicaments and biological substances; Z88.0 Allergy status to penicillin; Z88.2 Allergy status to sulfonamides; Z88.1 Allergy status to other antibiotic agents; Z79.02 Long term (current) use of antithrombotics/antiplatelets; Z79.899 Other long term (current) drug therapy

== ENCOUNTER 2021-07-26 22:00 | Inpatient (IN) | payer OTHER ==
[~2021-07-26] VITALS: Ht 162.6 cm; Wt 173.7 kg
--- NOTE | ~2021-07-26 | CON ---
[address] [address] CONSULTATION Name: JENNY QUEVEDO Room: [address] IN M.R.#: [id number] Admission: 07/27/21 Attend Phys: Junaid Stone Discharge: Date of : 38 Report #: [id number] THIS REPORT FOR: cc: Terri Greenberg Linda J. DO Namin,Sakshi Syed MD ~ DATE OF CONSULTATION: 07/30/2021 REASON FOR CONSULTATION: Iron deficiency anemia. HISTORY OF PRESENT ILLNESS: This is an 80-year-old female who presented to hospital on 07/27/2021 with shortness of air and respiratory distress. The patient had reported that recently she was tested positive for COVID. She reports that she has been vaccinated for COVID. She has not received her booster as she says that it is not time of it yet. The patient initially got intubated and was just extubated this afternoon. We were consulted mainly in reference to her anemia. The patient denies any hematochezia, melena, or abdominal pain. She also denies any dysphagia or odynophagia, nausea, vomiting or hematemesis. She has had endoscopic evaluation dating back to almost 10 years ago. She does not recall what the results of her endoscopies were. PAST MEDICAL HISTORY: Significant for history of renal insufficiency, hypertension, gastroesophageal reflux disease, back pain, hyperlipidemia, hypothyroidism, anticoagulation therapy and chronic back pain. ALLERGIES: SIGNIFICANT TO ASPIRIN, CODEINE, LISINOPRIL, IBUPROFEN, PENICILLIN, VANCOMYCIN AND SULFA. MEDICATIONS: Please refer to MAR. SOCIAL HISTORY: The patient lives at home. Denies tobacco or alcohol use. She admits to receiving both doses of her COVID vaccination, but cannot tell me if she received Moderna or Pfizer. She reports that she has not received her booster as it is not time for it yet. FAMILY HISTORY: Noncontributory. PHYSICAL EXAMINATION: GENERAL: Reveals normal vitals. The patient was just extubated and chewing on ice chips. She is well, alert and oriented. VITAL SIGNS: Blood pressure is 136/56, respirations 19, pulse 67, temperature 97.9[place] [address] CONSULTATION Name: JENNY QUEVEDO Room: [address] IN [facility]#: [id number] Admission: 07/27/21 Attend Phys: Junaid Stone Discharge: Date of : 39 Report #: [id number] LUNGS: Crackles at the bases. CARDIOVASCULAR: Regular rate. ABDOMEN: Soft, nontender, nondistended. Bowel sounds are positive. NEUROLOGIC: The patient is alert and oriented x3. LABORATORY DATA: Reveals sodium of 143, potassium 4.3, BUN is 40, creatinine 1.1, glucose 263. AST is 27, alkaline phosphatase 34, total bilirubin 0.4, ALT 23. Serum iron is 18 with iron saturation of 7 and total iron binding capacity of 249. Her INR on 07/28 was 1.4. WBC 6.3 with hemoglobin of 9.2 and platelets of 137. IMAGING: Chest x-ray from today reveals persistent bilateral hazy ground glass interstitial pulmonary opacities, which is unchanged from previous chest x-rays. ASSESSMENT AND PLAN: The patient with respiratory failure due to COVID pneumonia, who was just extubated. She also had acute over chronic renal failure. She has iron deficiency anemia, but denies any asim GI bleed. We will replace her iron as I will put her on 325 mg of iron sulfate b.i.d. and consider upper endoscopy once she comes out of isolation and stable from respiratory status. We will advance her diet to regular. I will check her CBC tomorrow just to make sure that her hemoglobin remaining stable. We will continue following up the patient during this hospitalization. By: 1528 1927Sakshi Bullard MD /seth
[~2021-07-26 22:00] MED LIST changes: +CLARITIN10 M2 PO; +COZAAR 25 MG TA25 MG PO; +DRIZALMA SPRINK60 MG PO; +DULCOLAX STOOL100 M1 PO; +FARXIGA10 MG PO; +FLOVENT HFA 4444 MCG INH; +KLOR-CON M2020 MEQ PO; +PLAVIX 75 MG TA75 MG PO; +PROPRANOLOL 20M20 M1 PO; +REFRESH RELIEVA10 M1 EA. EYE; +TRELEGY ELLIPT1 EACH INH; +TRILOGY; +VITAMIN D3125 MC1 PO
[2021-07-26 22:01] VITALS: BP 203/67
[2021-07-26 22:44] LABS: ABSOLUTE BASOPHILS 0.1 thou/uL (0.0-0.2); ABSOLUTE EOSINOPHILS 0.2 thou/uL (0.0-0.7); ABSOLUTE LYMPHOCYTES 2.8 thou/uL (0.8-5.3); ABSOLUTE MONOCYTES 0.5 thou/uL (0.0-1.2); ABSOLUTE NEUTROPHILS 5.9 thou/uL (1.6-8.1); BASOPHILS 0.6 %; EOSINOPHILS 1.8 %; HEMATOCRIT 39.3 % (37.0-47.0); HEMOGLOBIN 12.7 gm/dL (12.0-15.0); LYMPHOCYTES 29.4 %; MCH 29.4 pg (26.0-34.0); MCHC 32.4 g/dL (28.0-37.0); MCV 90.7 fL (80.0-100.0); MONOCYTES 5.6 %; MPV 9.4 fl. (7.2-11.1); NUCLEATED RBCS 0 /100WBC; PLATELET COUNT* 202 thou/uL (150-400); POLYS 62.6 %; RBC 4.33 mil/uL (4.20-5.00); RDW-CV 15.7 % (10.5-14.5); WBC 9.4 thou/uL (4.0-11.0)
[2021-07-26 22:53] LABS: URINE BILIRUBIN NEGATIVE (Negative); URINE BLOOD TRACE (Negative); URINE CLARITY CLEAR; URINE COLOR YELLOW; URINE GLUCOSE-RANDOM NEGATIVE (Negative); URINE KETONES NEGATIVE (Negative); URINE LEUKOCYTES-REFLEX NEGATIVE (Negative); URINE PROTEIN NEGATIVE (Negative); URINE UROBILINOGEN 0.2 E.U./dl (0.2-1.0)
[2021-07-26 22:56] LABS: CALCIUM 8.3 mg/dL (8.5-10.1); CREATININE 1.4 mg/dL (0.6-1.3); POTASSIUM 4.8 mmol/L (3.5-5.1)
[2021-07-26 22:58] LABS: URINE NITRITE-REFLEX POSITIVE (Negative)
[2021-07-26 22:58] LABS: ALBUMIN 3.3 g/dL (3.4-5.0); MAGNESIUM 2.2 mg/dL (1.8-2.4); PHOSPHORUS* 5.5 mg/dL (2.5-4.9); TOTAL BILIRUBIN 0.4 mg/dL (<0.1-1.0); TOTAL PROTEIN 7.2 g/dL (6.4-8.2)
[2021-07-26 23:01] LABS: APTT 41.4 Seconds (25.0-31.3); INR 2.1; PROTIME 21.4 Seconds (9.20-11.50)
[2021-07-26 23:11] LABS: INFLUENZA A ANTIGEN Negative (Negative); INFLUENZA B ANTIGEN Negative (Negative)
[2021-07-26 23:13] LABS: CASTS None Seen /LPF (None Seen); SQUAMOUS 4-10 Moderate /LPF (0-3)
[2021-07-26 23:14] LABS: BACTERIA-REFLEX >30 Many /HPF (None Seen); URINE RBC 0-2 Rare /HPF (0-2)
[2021-07-26 23:15] LABS: CRYSTALS None Seen /LPF (None Seen)
[2021-07-26 23:42] LABS: BE -9.4 mmol/L (-2 to +3)
[2021-07-26 23:44] LABS: PCO2 69.5 mmHg (35.0-45.0); PO2 288.4 mmHg (75.0-100.0); pH 7.099 (7.340-7.450)
[2021-07-27] VITALS (23 sets, daily range): BP systolic 103–146; BP diastolic 45–80
--- NOTE | 2021-07-27 04:36 | NUR ---
DR. DEVINE CONTACTED REGARDING ELEVATED TROPONIN. NEW ORDRES RECEIVED. WILL CONTINUE TO MONITOR.
--- NOTE | 2021-07-27 09:23 | NUR ---
Pt is admitted to the hospital on 07/27/20 with Respiratory Failure/Covid. Called daughter - Sonya Briceño at: [phone] to complete assessment. Pt lives with daughter in a house. Daughter had a lift installed in the main level of the home to assist with patient entering the home. Dtr indicated set up with bathing and dressing. Pt ambulating with a roller walker. No hx of oxygen or CPAP. NO hx of SNF. Pt receives services through [facility] - with a company called [facility] for a nurse to come out and check vitals and set up medications. Otherwise no hx of HH. Pt fills her prescriptions through mail order through [facility] but does occasionally utlize [facility]. Pt saw her PCP just a few weeks ago for a UTI. Asked about DPOA paperwork - dtr reports she does have it as is listed as her DPOA - asked for daughter to bring a copy to the hospital. CM to continue to follow for discharge planning.
--- NOTE | 2021-07-27 09:28 | NUR ---
REPORT GIVEN TO ICU NURSE ALYSSA HARP. PT STABLE ON TRANSFER. BEDSIDE REPORT GIVEN
--- NOTE | 2021-07-27 11:05 | EKG ---
[place] [address] ELECTROCARDIOGRAM REPORT Name: JENNY QUEVEDO Room: [address] ADM IN .R.#: [id number] Admission: 07/27/21 Attend Phys: Chris Joy Discharge: Date of : 38 Date of Service: 07/27/21 0353 Report #: [id number] THIS REPORT FOR: //name// [facility] ED Test Date: 2021-07-27 Test Time: 03:53:56 Pat Name: JENNY QUEVEDO Department: Room: [facility] Gender: F Edge Baster: ERFEN : 1940 Requested By: Suzi Wagoner Order Number: [id number] MD: Joseph Schulz Measurements Intervals [place] Rate: 86 P: 60 [place]: 159 QRS: 7 QRSD: 107 T: 136 QT: 364 QTc: 436 Interpretive Statements Sinus rhythm nonspecific st segment changes Probable anterior infarct, age indeterminate Lateral leads are also involved Compared to ECG 03/08/2021 23:16:46 Left ventricular hypertrophy no longer present Electronically Signed On 07-27-2021 11:04:52 CABLE MACHINE OPERATOR by Joseph Schulz [email or web address] <ELECTRONICALLY SIGNED> By: Joseph Schulz MD, [facility] 07/27/21 1104 0353 0353 Joseph Schulz MD, FAC /EPI
[2021-07-27 13:29] LABS: BE -8.2 mmol/L (-2 to +3); PCO2 35.6 mmHg (35.0-45.0); PO2 89.5 mmHg (75.0-100.0); pH 7.306 (7.340-7.450)
[2021-07-27 14:48] LABS: HEMATOCRIT 30.3 % (37.0-47.0); MCH 29.6 pg (26.0-34.0); MCHC 32.9 g/dL (28.0-37.0); MCV 90.1 fL (80.0-100.0); MPV 8.8 fl. (7.2-11.1); NUCLEATED RBCS 0 /100WBC; PLATELET COUNT* 148 thou/uL (150-400); RBC 3.36 mil/uL (4.20-5.00); RDW-CV 16.1 % (10.5-14.5); WBC 7.6 thou/uL (4.0-11.0)
--- NOTE | 2021-07-27 14:52 | CON ---
[address] [address] CONSULTATION Name: JENNY QUEVEDO Room: [address] ADM IN M.R.#: [id number] Admission: 07/27/21 Attend Phys: Junaid Stone Discharge: Date of : 38 Report #: [id number] THIS REPORT FOR: cc: Terri Greenberg Linda J. DO Blick, David R. MD [facility] ~ cc: Jojo Light NP DATE OF CONSULTATION: 07/27/2021 CARDIOLOGY CONSULTATION HISTORY OF PRESENT ILLNESS: The patient is an 80-year-old white female who I was asked to see in the hospital today after she was noted to be short of breath. The patient has an extensive past medical history. She has been admitted here to [facility] in the past. She was actually here this past February. Apparently 6 years ago, she underwent aortic valve replacement using tissue valve at [place]. In 10/2020, she had 2 coronary stents placed at [facility]. She was actually admitted here to [facility] in February of this year with chest pain. Medical therapy was recommended. She came to the Emergency Room yesterday by paramedics. She complained to being short of breath. She denied any chest pain, palpitations. She was placed on BiPAP. In the Emergency Room, intubated the patient last night. Cardiology consultation requested. There is no history of chest pain or syncope. PAST MEDICAL HISTORY: Significant for back surgery, cataract extraction, hysterectomy, colon resection, hypertension, diabetes. MEDICATIONS AT HOME: Include an inhaler, Lipitor, Plavix, Lasix, Neurontin, Synthroid, losartan. She is on warfarin. ALLERGIES: SHE HAD A PREVIOUS INTOLERANCE TO CODEINE AND PENICILLIN. FAMILY HISTORY: Father had heart attack. SOCIAL HISTORY: She is , lives with daughter in [place]. Quit smoking years ago. No alcohol abuse. REVIEW OF SYSTEMS: No history of stroke, liver disease. She has chronic kidney disease, wearing glasses. No history of cancer, no psychiatric illness, no chronic skin condition. PHYSICAL EXAMINATION: GENERAL: Revealed an elderly, frail-appearing female, lying in bed. She appeared in no distress. She [place] [address] CONSULTATION Name: JENNY QUEVEDO Room: [address]#: [id number] Admission: 07/27/21 Attend Phys: Junaid Stone Discharge: Date of : 38 Report #: [id number] VITAL SIGNS: Blood pressure was 100/60. She is on pressors, pulse is 80. She is afebrile. HEENT: She was anicteric. Conjunctivae pink. Mucous membranes appear moist. CHEST: Revealed coarse breath sounds bilaterally. HEART: Regular rate and rhythm. Grade 2 systolic ejection murmur. ABDOMEN: Soft. EXTREMITIES: Had no pitting edema. SKIN: Cool and dry. LABORATORY AND IMAGING DATA: Her ECG on admission showed a sinus rhythm, nonspecific T-wave changes. Her workup, the patient had a cardiac catheterization by Dr. Fleming back in 02/2020 here at [facility] that showed 80% mid LAD stenosis, 70% circumflex stenosis. She had drug-eluting stent placed in the LAD. Her x-ray last night showed bilateral pneumonia. Her lab work, creatinine 1.4, glucose 324, high sensitivity troponin 2276. BNP 2551. Her INR is 2.1. Hemoglobin 12.7. Her COVID antigen stat test was positive. IMPRESSION AND RECOMMENDATIONS: 1. COVID-19 pneumonia. The patient currently intubated. 2. Coronary artery disease. Previous stents. No recent angina. 3. Previous replacement of the aortic valve using tissue valve. Recommend echocardiogram. 4. Hypertension. 5. Diabetes. 6. Hyperlipidemia. 7. Chronic kidney disease. 8. History of warfarin use, reason unclear. <ELECTRONICALLY SIGNED> By: Joseph Schulz MD, [facility] 07/27/21 1452 0930 1033Davijunaid Schulz MD, FAC /nt
[2021-07-27 15:02] LABS: ALBUMIN 2.4 g/dL (3.4-5.0); CALCIUM 7.2 mg/dL (8.5-10.1); CREATININE 1.5 mg/dL (0.6-1.3); POTASSIUM 4.8 mmol/L (3.5-5.1); TOTAL BILIRUBIN 0.2 mg/dL (<0.1-1.0); TOTAL PROTEIN 5.6 g/dL (6.4-8.2)
[2021-07-27 15:18] LABS: ABSOLUTE LYMPHOCYTES 0.5 thou/uL (0.8-5.3); ABSOLUTE MONOCYTES 0.2 thou/uL (0.0-1.2); ABSOLUTE NEUTROPHILS 6.9 thou/uL (1.6-8.1); PLATELET ESTIMATE DECREASED
--- NOTE | 2021-07-27 20:12 | CON ---
[address] [address] CONSULTATION Name: JENNY QUEVEDO Room: [address] ADM IN M.R.#: [id number] Admission: 07/27/21 Attend Phys: Junaid Stone Discharge: Date of : 38 Report #: [id number] THIS REPORT FOR: cc: Terri Greenberg Linda J. DO Pervez, Adeel MD ~ DATE OF CONSULTATION: 07/27/2021 Consult has been requested by Dr. Ortega. INDICATION FOR CONSULTATION: COVID-19 and respiratory failure. HISTORY OF PRESENT ILLNESS: An 80-year-old female with past medical history is as mentioned below. There is mention of a previous history of cardiac disease including a tissue valve. She is on Coumadin. The reason she is on Coumadin is not known. Also, the patient is reported to have smoked in the past; however, there is no mention of COPD on the records. The patient is now here with acute respiratory failure, initially had significant hypoxemia as well as hypercarbia, is currently on the ventilator. She does have a metabolic acidosis on the blood gas. We down to 40% FiO2 and 5 of PEEP and she is oxygenating adequately with this. There is elevation in troponin I. The patient is unable to provide a further history or review of systems. PAST MEDICAL HISTORY: Tissue aortic valve. Coumadin use long-term, indications for Coumadin not known at this time, I do not have a measure of her left ventricular ejection fraction. Back surgery, cataract surgery, hysterectomy, colon surgery, diabetes, hypertension. SOCIAL HISTORY: Previous history of smoking, unable to quantify at this time. CURRENT MEDICATIONS: List in [facility] reviewed. HOME MEDICATIONS: List in [facility] reviewed. ALLERGIES: CODEINE AND PENICILLIN; however, tolerates cephalosporins without problems. VACCINATION HISTORY: Unknown if vaccinated for COVID-19. FAMILY HISTORY: Father had a heart attack. PHYSICAL EXAMINATION: GENERAL: Sedated with propofol at 15, appears to be well sedated, 40% FiO2, 5 of PEEP, assist control mode of ventilation, ventilator settings are as documented and reviewed. [place] [address] CONSULTATION Name: JENNY QUEVEDO Room: [address] IN [facility]#: [id number] Admission: 07/27/21 Attend Phys: Junaid Stone Discharge: Date of : 38 Report #: [id number] HEENT: Head is normocephalic and atraumatic. Endotracheal tube is high in the trachea. NECK: Does not show raised JVP. CHEST: Breath sounds are bilaterally equal. No added sounds. HEART: Regular. There is no murmur. ABDOMEN: Soft and nontender. LOWER EXTREMITIES: No edema, no calf tenderness. LABORATORY WORK: In [facility] reviewed. Chest x-ray consistent with ARDS secondary to COVID-19 in [facility] reviewed. COVID-19 antigen is positive. ASSESSMENT AND PLAN: 1. Acute hypoxemic and hypercarbic respiratory failure. Currently stable on 40% FiO2, 5 of PEEP. I would continue propofol. If needed, we will add fentanyl. She has a central line in place. 2. COVID-19. Agree with dexamethasone and remdesivir, follow LFTs. We will follow the dexamethasone dose. If Actemra is available, then she will benefit. We will check on this. Patient is also receiving convalescent plasma per the Primary Service. I do not feel strongly either way regarding this. I would also give her nebulized bronchodilators. 3. Renal insufficiency. Unclear if this is chronic or acute. I would presume this as acute. Her baseline creatinine was 1.0 in February. She received saline in the ER and now is ordered Lasix, is ventilating and oxygenating adequately. I would do repeat labs now and then reassess this. If creatinine remains elevated, then I will be inclined to hold off on Lasix. 4. Hyperglycemia. Blood glucoses per primary service. 5. Elevated troponin I/history of Coumadin use. INR was therapeutic on admission. I favor discontinuing IV heparin and continuing Coumadin to maintain INR greater than 2.0. Indication for Coumadin not known. Recommend obtaining an echocardiogram. Cardiology is on the case. 6. Metabolic acidosis. May benefit from some bicarb. I will obtain lab work and then assess this further as well. 7. Pulmonary infiltrates. Agree with doxycycline. We will obtain a sputum culture. We will review further and then decide as to whether to continue with ceftriaxone or switch it over to cefepime. We will obtain a nasal swab for methicillin-resistant Staphylococcus aureus. 8. Gastrointestinal prophylaxis. Protonix. 9. Clostridium difficile prophylaxis. Lactinex. 10. Nutrition. If not off the ventilator tomorrow, then plan to start tube feeds. The patient is critically ill at this time. [facility] [address] [facility] [place] [address] CONSULTATION Name: JENNY QUEVEDO Room: [address] IN .R.#: [id number] Admission: 07/27/21 Attend Phys: Junaid Stone Discharge: Date of : 38 Report #: [id number] Total time spent providing critical care to this patient today exceeds 41 minutes. <ELECTRONICALLY SIGNED> By: Parvez Syed MD 07/27/212011 1311 [id number] Syed MD /nt
--- NOTE | 2021-07-27 20:35 | NUR ---
PT ARRIVED TO THE UNIT TRANSPORTED BY ED STAFF AND ELECTRIC SCOOP OPERATOR. BEDSIDE REPORT DONE. PT ARRIVED ON LEVO AND INTUBATED. FIO2 REDUCED TO 40% AND TOLERATING. LEVO TITRATED OFF BY END OF SHIFT. PT ALERT AND ABLE TO FOLLOW COMANDS. SEDATION REDUCED TO MAINTAINE RASS OF 0, -1. NO FEVERS, LASIX GIVEN WITH MILD DIURESES. FAMILY UPDATED AND CONCENT FOR CV PLASMA OBTAINED. TROPONINS INCREASED CARDIOLOGY NOTIFIED - PER CARDIOLOGY NO NEED TO UPDATE UNLESS PT BECOMES SYMPTOMATIC. ABD DISTENEDID - OG TO LIS ON ARRIVAL, MINIMAL OUTPUT. VSS, WILL CONTINUE TO MONITOR.
[2021-07-28] VITALS (194 sets, daily range): BP systolic 89–170; BP diastolic 37–81
[2021-07-28 05:50] LABS: ABSOLUTE LYMPHOCYTES 0.6 thou/uL (0.8-5.3); ABSOLUTE MONOCYTES 0.2 thou/uL (0.0-1.2); ABSOLUTE NEUTROPHILS 5.7 thou/uL (1.6-8.1); BASOPHILS 0.6 %; HEMATOCRIT 26.6 % (37.0-47.0); HEMOGLOBIN 8.7 gm/dL (12.0-15.0); LYMPHOCYTES 8.6 %; MCH 29.7 pg (26.0-34.0); MCHC 32.9 g/dL (28.0-37.0); MCV 90.2 fL (80.0-100.0); MONOCYTES 3.1 %; MPV 8.9 fl. (7.2-11.1); NUCLEATED RBCS 0 /100WBC; PLATELET COUNT* 136 thou/uL (150-400); POLYS 87.7 %; RBC 2.94 mil/uL (4.20-5.00); RDW-CV 15.5 % (10.5-14.5); WBC 6.6 thou/uL (4.0-11.0)
[2021-07-28 06:02] LABS: INR 1.4; PROTIME 14.6 Seconds (9.20-11.50)
[2021-07-28 06:16] LABS: APTT 33.9 Seconds (25.0-31.3)
[2021-07-28 06:23] LABS: ALBUMIN 2.7 g/dL (3.4-5.0); CALCIUM 7.6 mg/dL (8.5-10.1); CREATININE 1.1 mg/dL (0.6-1.3); MAGNESIUM 1.9 mg/dL (1.8-2.4); TOTAL BILIRUBIN 0.4 mg/dL (<0.1-1.0); TOTAL PROTEIN 5.6 g/dL (6.4-8.2)
[2021-07-28 06:25] LABS: POTASSIUM 3.8 mmol/L (3.5-5.1)
[2021-07-28 06:57] LABS: PHOSPHORUS* 3.4 mg/dL (2.5-4.9)
--- NOTE | 2021-07-28 10:34 | 2DMMODE ---
[place] [address] 2 D/M-MODE ECHOCARDIOGRAM Name: JENNY QUEVEDO Room: [address] IN .R.#: [id number] Admission: 07/27/21 Attend Phys: Chris Joy Discharge: Date of : 38 Date of Service: 07/28/21 1034 Report #: [id number] THIS REPORT FOR: cc: Terri Greenberg,Bassam Donis MD [facility] ~ APPROVED REPORT Study performed: 07/28/2021 09:35:25 EXAM: Comprehensive 2D, Doppler, and color-flow Echocardiogram Patient Location: Bedside BSA: 1.94 HR: 67 bpm BP: 134/53 mmHg Other Information Study Quality: Adequate Technically limited study due to patient on ventilator, inability to position patient. Indications Covid, Myocardial Infarction 2D Dimensions IVSd: 13.61 (7-11mm) LVOT Diam: 17.12 (18-24mm) LVDd: 44.63 mm PWd: 11.53 (7-11mm) Ascending Ao: 29.32 (22-36mm) LVDs: 28.62 (25-40mm) Aortic Root: 24.12 mm Aortic Valve AoV Peak Abdulaziz.: 1.46 m/s AO Peak Gr.: 8.53 mmHg LVOT Max P.02 mmHg AO Mean Gr.: 4.69 mmHg LVOT Mean P.14 mmHg LVOT Max V: 1.00 m/s AO V2 VTI: 27.98 cm LVOT Mean V: 0.69 m/s CHICHI (VTI): 1.34 cm2 LVOT V1 VTI: 16.29 cm Mitral Valve E/A Ratio: 3.50 MV Decel. Time: 133.77 ms MV E Max Abdulaziz.: 1.11 m/[place] [address] 2 D/M-MODE ECHOCARDIOGRAM Name: JENNY QUEVEDO Room: [address] IN [facility]#: [id number] Admission: 07/27/21 Attend Phys: Chris Joy Discharge: Date of : 38 Date of Service: 07/28/21 1034 Report #: [id number] MV PHT: 38.79 ms MVA (PHT): 5.67 cm2 TDI E/Lateral E': 10.09 Lateral E' Abdulaziz.: 0.11 m/s Pulmonary Valve PV Peak Abdulaziz.: 1.12 m/s PV Peak Gr.: 5.06 mmHg Tricuspid Valve RAP Estimate: 5.00 mmHg TR Peak Gr.: 37.65 mmHg RVSP: 42.65 mmHg PA Pressure: 42.65 mmHg Left Ventricle The left ventricle is normal size. Focal hypokinesis involving the distal anteroseptal apical wall. Mild concentric left ventricular hypertrophy. Left ventricular systolic function is preserved. LVEF is 50-55%. Transmitral Doppler flow pattern suggests restrictive physiology. Right Ventricle The right ventricle is normal size. The right ventricular systolic function is normal. Atria The left atrium size is normal. Interatrial septum not visualized. The right atrium size is normal. Aortic Valve Bioprosthetic aortic valve is present. No aortic regurgitation is present. There is no aortic valvular stenosis. Mitral Valve There is mitral annular calcification. Mild to moderate mitral regurgitation. No evidence of mitral valve stenosis. Tricuspid Valve The tricuspid valve is normal in structure. Trace tricuspid regurgitation. Mild pulmonary hypertension. Pulmonic Valve The pulmonary valve is normal in structure. Trace [place]mon[place] [address] 2 D/M-MODE ECHOCARDIOGRAM Name: JENNY QUEVEDO Room: [address] IN [facility]#: [id number] Admission: 07/27/21 Attend Phys: Chris Joy Discharge: Date of : 38 Date of Service: 07/28/21 1034 Report #: [id number] Great Vessels The aortic root is normal in size. Aortic arch is not visualized. IVC is not well visualized. Pericardium There is no pericardial effusion. <Conclusion> The left ventricle is normal size. Mild concentric left ventricular hypertrophy. Left ventricular systolic function is preserved. LVEF is 50-55%. Transmitral Doppler flow pattern suggests restrictive physiology. Focal hypokinesis involving the distal anteroseptal apical wall. Bioprosthetic aortic valve is present. Mild to moderate mitral regurgitation. Trace tricuspid regurgitation. Mild pulmonary hypertension. <ELECTRONICALLY SIGNED> By: Bassam Martínez MD, FACC 07/28/21 1034 1034 1034 Bassam Martínez MD, FACC /INF
[2021-07-28 11:12] LABS: BE -2.5 mmol/L (-2 to +3); PCO2 33.4 mmHg (35.0-45.0); pH 7.421 (7.340-7.450)
--- NOTE | 2021-07-28 12:49 | NUR ---
updated dgtr on extubation and subsequent reintubation.
--- NOTE | 2021-07-28 19:49 | NUR ---
SEDATION VACATION AND SBT DONE THIS AM. PT TOLERATED OXYGENAED WELL AND WAS NOT IN DESTRESS. RASS OF 0 ACHIEVED, PT ABLE TO FOLLOW COMMANDS AND NOD APPROPRIALY. PER PRVIDER PT EXTUBATED. P IMMEDIATL BECAME TACHYCARDIC AND HPERTENSIVE. INCREASED WOB,RESTLESS, AND TACHYPNIC. DR. LARSON CALLED TO BEDSIDE, PT PLACED ON BIPAP AND GIVEN 1MG ATIVAN. PT BECAME LESS RESPNSIVE - DR. LARSON ORDERED TO INTUBATE. ANESTESIA PROVIDER CALLED TO BEDSIDE 10MG OF ETOMIDATE AND 100MG SUCCINYLCHOLINE GIVEN. PT SUCCESSFULY INTUBATED WITH 7.5 ET TUBE. PT SEDATED WITH PROPOFOL ATER INTUBATION. HR CONTINUED TO BE ELEVATED - 140s AND TACHYPNIC. FENTANYL PRN GIVEN. MAG AND POTASSIUM GIVEN. PT STABALYZED WITH INCREASED SEDATION. PT NOW MORE COMFORABLE ON VENT WITH SUSTAINED AWAKNING AND FOLLOWING COMMANDS. FIO2 CURRENTLY 60%. WILL CONINUE TO MONIOR.
[2021-07-28 21:16] LABS: ABSOLUTE LYMPHOCYTES 0.6 thou/uL (0.8-5.3); ABSOLUTE MONOCYTES 0.6 thou/uL (0.0-1.2); ABSOLUTE NEUTROPHILS 13.9 thou/uL (1.6-8.1); BASOPHILS 0.3 %; HEMATOCRIT 31.8 % (37.0-47.0); HEMOGLOBIN 10.4 gm/dL (12.0-15.0); MCHC 32.6 g/dL (28.0-37.0); MCV 88.9 fL (80.0-100.0); MONOCYTES 3.8 %; MPV 8.9 fl. (7.2-11.1); NUCLEATED RBCS 0 /100WBC; PLATELET COUNT* 170 thou/uL (150-400); POLYS 91.9 %; RBC 3.58 mil/uL (4.20-5.00); RDW-CV 16.2 % (10.5-14.5); WBC 15.1 thou/uL (4.0-11.0)
[2021-07-28 21:33] LABS: CALCIUM 7.8 mg/dL (8.5-10.1); CREATININE 1.4 mg/dL (0.6-1.3); MAGNESIUM 2.3 mg/dL (1.8-2.4); POTASSIUM 4.4 mmol/L (3.5-5.1)
[2021-07-29] VITALS (49 sets, daily range): BP systolic 106–147; BP diastolic 41–66
[2021-07-29 04:57] LABS: ABSOLUTE LYMPHOCYTES 0.4 thou/uL (0.8-5.3); ABSOLUTE MONOCYTES 0.3 thou/uL (0.0-1.2); ABSOLUTE NEUTROPHILS 10.5 thou/uL (1.6-8.1); BASOPHILS 0.1 %; HEMATOCRIT 28.7 % (37.0-47.0); HEMOGLOBIN 9.4 gm/dL (12.0-15.0); LYMPHOCYTES 3.9 %; MCHC 32.6 g/dL (28.0-37.0); MCV 88.7 fL (80.0-100.0); MONOCYTES 2.7 %; MPV 9.5 fl. (7.2-11.1); NUCLEATED RBCS 0 /100WBC; PLATELET COUNT* 155 thou/uL (150-400); POLYS 93.3 %; RBC 3.24 mil/uL (4.20-5.00); RDW-CV 15.8 % (10.5-14.5); WBC 11.2 thou/uL (4.0-11.0)
[2021-07-29 06:05] LABS: PHOSPHORUS* 4.2 mg/dL (2.5-4.9)
[2021-07-29 06:10] LABS: ALBUMIN 2.8 g/dL (3.4-5.0); ALKALINE PHOSPHATASE 35 U/L (46-116); ANION GAP 10 mmol/L (7-16); BUN 39 mg/dL (7-18); CALCIUM 7.6 mg/dL (8.5-10.1); CHLORIDE 109 mmol/L (98-107); CO2 23 mmol/L (21-32); CREATININE 1.4 mg/dL (0.6-1.3); GLUCOSE 192 mg/dL (70-99); MAGNESIUM 2.3 mg/dL (1.8-2.4); POTASSIUM 4.4 mmol/L (3.5-5.1); SGOT 48 U/L (15-37); SGPT 27 U/L (30-65); SODIUM 142 mmol/L (136-145); TOTAL BILIRUBIN 0.4 mg/dL (<0.1-1.0); TOTAL PROTEIN 5.9 g/dL (6.4-8.2)
[2021-07-29 07:40] LABS: SERUM ASSESSMENT Clear
[2021-07-29 07:45] LABS: CHOLESTEROL 149 mg/dL (<200); HDL CHOLESTEROL 43 mg/dL (>40); LDL CHOLESTEROL 79 mg/dL (<100); TC:HDL 3.5 Ratio (Not establshd); TRIGLYCERIDE 136 mg/dL (<150); VLDL 27 mg/dL (<40)
[2021-07-29 09:08] LABS: BE -1.9 mmol/L (-2 to +3); PCO2 33.9 mmHg (35.0-45.0); pH 7.429 (7.340-7.450)
[2021-07-29 22:08] LABS: MYCOPLASMA PNEUMONIA IgG 135 U/mL (0-99); MYCOPLASMA PNEUMONIA IgM <770 U/mL (0-769)
[2021-07-30] VITALS (38 sets, daily range): BP systolic 105–150; BP diastolic 44–119
[2021-07-30 04:32] LABS: ABSOLUTE LYMPHOCYTES 0.5 thou/uL (0.8-5.3); ABSOLUTE MONOCYTES 0.3 thou/uL (0.0-1.2); ABSOLUTE NEUTROPHILS 5.5 thou/uL (1.6-8.1); BASOPHILS 0.1 %; HEMATOCRIT 28.1 % (37.0-47.0); HEMOGLOBIN 9.2 gm/dL (12.0-15.0); LYMPHOCYTES 7.8 %; MCH 29.2 pg (26.0-34.0); MCHC 32.7 g/dL (28.0-37.0); MCV 89.1 fL (80.0-100.0); MPV 9.6 fl. (7.2-11.1); NUCLEATED RBCS 0 /100WBC; PLATELET COUNT* 137 thou/uL (150-400); POLYS 88.1 %; RBC 3.15 mil/uL (4.20-5.00); RDW-CV 16.2 % (10.5-14.5); WBC 6.3 thou/uL (4.0-11.0)
[2021-07-30 04:59] LABS: ALBUMIN 2.6 g/dL (3.4-5.0); CALCIUM 7.9 mg/dL (8.5-10.1); CREATININE 1.1 mg/dL (0.6-1.3); MAGNESIUM 2.4 mg/dL (1.8-2.4); POTASSIUM 4.3 mmol/L (3.5-5.1); TOTAL BILIRUBIN 0.4 mg/dL (<0.1-1.0); TOTAL PROTEIN 5.8 g/dL (6.4-8.2)
[2021-07-30 13:20] LABS: BE -0.7 mmol/L (-2 to +3); PCO2 32.5 mmHg (35.0-45.0); PO2 82.7 mmHg (75.0-100.0)
--- NOTE | 2021-07-30 15:26 | NUR ---
ICU Rounds: Remains intubated and Sedated. Intubated 07/27/21, Extubated 07/28/21 but went into respiratory distress and was intubated again on 07/28/21. Lives with dtr DPOA: Dtr reports pt has DPOA paperwork - requested dtr bring a copy to place on chart. 40% Fi02 peep of 5 Anticipate pt will need SNF placement. CM to continue to follow for discharge needs.
--- NOTE | 2021-07-30 19:14 | NUR ---
REPORT RECIEVED THIS AM AND CARE ASSUMMED. PT REMAINED INTUBATED AT THAT TIME. SEE CHARTING FOR VENTILATOR SETTINGS. PT IS AWAKE AND FOLLOWS COMMANDS. PIERCE INTACT AND PATENT DRAIING YELLOW URINE. PT EXTUBATED APPROXIMATELY 1330. PT PLACED ON NC 4.0 L. PT AAOX4. TALKING ON PHONE AND TOLERATING LIQUIDS. MONITORS INTACT AND NO ACUTE CHANGES DURING SHIFT.
[2021-07-31] VITALS (13 sets, daily range): BP systolic 110–172; BP diastolic 49–78
[2021-07-31 05:31] LABS: HEMATOCRIT 27.7 % (37.0-47.0); HEMOGLOBIN 9.2 gm/dL (12.0-15.0); MCH 29.5 pg (26.0-34.0); MCHC 33.2 g/dL (28.0-37.0); MCV 88.8 fL (80.0-100.0); MPV 9.2 fl. (7.2-11.1); NUCLEATED RBCS 0 /100WBC; PLATELET COUNT* 138 thou/uL (150-400); RBC 3.12 mil/uL (4.20-5.00); RDW-CV 16.1 % (10.5-14.5); WBC 7.8 thou/uL (4.0-11.0)
[2021-07-31 06:39] LABS: ALBUMIN 2.8 g/dL (3.4-5.0); CALCIUM 8.3 mg/dL (8.5-10.1); CREATININE 1.2 mg/dL (0.6-1.3); MAGNESIUM 2.1 mg/dL (1.8-2.4); POTASSIUM 3.7 mmol/L (3.5-5.1); TOTAL BILIRUBIN 0.7 mg/dL (<0.1-1.0); TOTAL PROTEIN 5.8 g/dL (6.4-8.2)
[2021-07-31 08:20] LABS: ABSOLUTE LYMPHOCYTES 0.5 thou/uL (0.8-5.3); ABSOLUTE MONOCYTES 0.2 thou/uL (0.0-1.2)
[2021-07-31 08:21] LABS: PLATELET ESTIMATE ADEQUATE
--- NOTE | 2021-07-31 13:36 | NUR ---
TRANSFERRED TO [facility] WITH [facility]ONG[facility], REPORT GIVEN TO JON. DYER NOTIFIED BY PATIENT.
--- NOTE | 2021-07-31 14:28 | NUR ---
Pt ws successfully extubated oon 07/30/21. Therapy has been ordered as we have anticipated pt will need SNF - but per doctor - pt is very motivated to go home with HH therapies and does not want to go to SNF. Waiting for therapy evals for recommendations. Pt is being transferred from ICU to ortho spine unit. CM to continue to follow for discharge planning.
[2021-08-01] VITALS: BP 163/70
--- NOTE | 2021-08-01 01:14 | NUR ---
ASSUMED CARE OF PT AT 1900. PT IS ALERT AND ORIENTED. VSS. PERRLA. PT IS ON 2 LITERS O2. PT HAS A PIERCE IN PLACE. PT IS IN SINUS RYTHM ON THE TELEMETRY. PT IS RESTING COMFORTABLY IN BED. RESPIRATIONS ARE EVEN AND NONLABORED. WILL CONTINUE TO MONITOR PT.
[2021-08-01 04:00] VITALS: BP 161/63
[2021-08-01 05:38] LABS: ABSOLUTE LYMPHOCYTES 1.4 thou/uL (0.8-5.3); ABSOLUTE MONOCYTES 0.9 thou/uL (0.0-1.2); ABSOLUTE NEUTROPHILS 9.1 thou/uL (1.6-8.1); BASOPHILS 0.1 %; HEMATOCRIT 30.3 % (37.0-47.0); LYMPHOCYTES 12.3 %; MCH 29.2 pg (26.0-34.0); MCHC 33.1 g/dL (28.0-37.0); MCV 88.5 fL (80.0-100.0); MONOCYTES 8.2 %; MPV 9.6 fl. (7.2-11.1); NUCLEATED RBCS 0 /100WBC; PLATELET COUNT* 182 thou/uL (150-400); POLYS 79.4 %; RBC 3.42 mil/uL (4.20-5.00); RDW-CV 15.6 % (10.5-14.5); WBC 11.5 thou/uL (4.0-11.0)
[2021-08-01 05:47] LABS: CALCIUM 8.6 mg/dL (8.5-10.1); CREATININE 1.1 mg/dL (0.6-1.3); POTASSIUM 3.7 mmol/L (3.5-5.1)
[2021-08-01 09:00] VITALS: BP 143/58
[2021-08-01 12:00] VITALS: BP 140/57
[2021-08-01 19:50] VITALS: BP 164/62
[2021-08-02] VITALS: BP 143/50
[2021-08-02 04:00] VITALS: BP 140/51
[2021-08-02 06:16] LABS: HEMATOCRIT 30.3 % (37.0-47.0); HEMOGLOBIN 9.9 gm/dL (12.0-15.0); MCH 29.1 pg (26.0-34.0); MCHC 32.7 g/dL (28.0-37.0); MPV 9.3 fl. (7.2-11.1); RBC 3.4 mil/uL (4.20-5.00); RDW-CV 15.9 % (10.5-14.5)
[2021-08-02 06:37] LABS: CALCIUM 8.9 mg/dL (8.5-10.1); CREATININE 1.1 mg/dL (0.6-1.3); POTASSIUM 4.1 mmol/L (3.5-5.1)
[2021-08-02 06:39] LABS: INR 1.2; PROTIME 11.8 Seconds (9.20-11.50)
[2021-08-02] MEDS ORDERED: METOPROLOL SUCC25 M1 PO (08:38)
[2021-08-02] MEDS ORDERED: PLAVIX 75 MG TA75 M1 PO (08:38)
[2021-08-02 11:35] VITALS: BP 134/44
--- NOTE | 2021-08-03 13:13 | EKG ---
[place] [address] ELECTROCARDIOGRAM REPORT Name: JENNY QUEVEDO Room: [address] IN M.R.#: [id number] Admission: 07/27/21 Attend Phys: Chris Joy Discharge: 08/02/21 Date of : 38 Date of Service: 08/01/21 1509 Report #: [id number] THIS REPORT FOR: //name// [facility] Test Date: 2021-08-01 Test Time: 15:09:14 Pat Name: JENNY QUEVEDO Department: Room: [address] Gender: F Recreation Facility Attendant: KIM : 1940 Requested By: Chris Joy Order Number: [id number] Capri MD: Khang Fleming Measurements Intervals [place] Rate: 152 P: VT: QRS: -21 QRSD: 94 T: 142 QT: 284 QTc: 452 Interpretive Statements The rhythm appears predominantly atrial flutter with 2-1 block Borderline left axis deviation Repolarization abnormality, prob rate related Compared to ECG 07/27/2021 03:53:56 Early repolarization now present Sinus rhythm no longer present Myocardial infarct finding no longer present Electronically Signed On 08-03-2021 13:13:10 [employer] by Khang Fleming [email or web address] <ELECTRONICALLY SIGNED> By: Khang Fleming MD, [facility] 08/03/21 1313 1509 1509 Khang Fleming MD, [facility] /EPI
== END 2021-08-02 12:45 | disposition home health service (06) | DRG 208 ==
LOC: M.ERS 22:00 → M.ICU 07-27 02:13 → M.TBA-ER 07-27 02:13 → M.ICU 07-27 09:29 → M.ORTHSURG 07-31 13:04
PROVIDERS: Family Medicine; Internal Medicine; Internal Medicine Cardiovascular Disease; Internal Medicine Critical Care Medicine; Personal Emergency Response Attendant; ADMIT Internal Medicine; ATTEND Internal Medicine
PROC: XW13325 Transfusion of Convalescent Plasma (Nonautologous) into Peripheral Vein, Percutaneous Approach, New Technology Group 5 (ICD-10-PCS; principal; 2021-07-27)
PROC: 5A1945Z Respiratory Ventilation, 24-96 Consecutive Hours (ICD-10-PCS; principal; 2021-07-27)
PROC: B548ZZA Ultrasonography of Superior Vena Cava, Guidance (ICD-10-PCS; principal; 2021-07-27)
PROC: 02HV33Z Insertion of Infusion Device into Superior Vena Cava, Percutaneous Approach (ICD-10-PCS; principal; 2021-07-27)
PROC: XW033E5 Introduction of Remdesivir Anti-infective into Peripheral Vein, Percutaneous Approach, New Technology Group 5 (ICD-10-PCS; principal; 2021-07-27)
PROC: 0BH17EZ Insertion of Endotracheal Airway into Trachea, Via Natural or Artificial Opening (ICD-10-PCS; principal; 2021-07-27)
DX: U07.1 COVID-19 (principal); J96.01 Acute respiratory failure with hypoxia; J15.6 Pneumonia due to other Gram-negative bacteria; J12.82 Pneumonia due to coronavirus disease 2019; I21.A1 Myocardial infarction type 2; J96.02 Acute respiratory failure with hypercapnia; J44.0 Chronic obstructive pulmonary disease with (acute) lower respiratory infection; N39.0 Urinary tract infection, site not specified; D68.69 Other thrombophilia; I13.0 Hypertensive heart and chronic kidney disease with heart failure and stage 1 through stage 4 chronic kidney disease, or unspecified chronic kidney disease; E78.00 Pure hypercholesterolemia, unspecified; I50.9 Heart failure, unspecified; I25.10 Atherosclerotic heart disease of native coronary artery without angina pectoris; E78.5 Hyperlipidemia, unspecified; E11.65 Type 2 diabetes mellitus with hyperglycemia; E03.9 Hypothyroidism, unspecified; G89.29 Other chronic pain; M54.9 Dorsalgia, unspecified; K21.9 Gastro-esophageal reflux disease without esophagitis; D50.9 Iron deficiency anemia, unspecified; N18.30 Chronic kidney disease, stage 3 unspecified; I48.91 Unspecified atrial fibrillation; B96.20 Unspecified Escherichia coli [E. coli] as the cause of diseases classified elsewhere; Z95.2 Presence of prosthetic heart valve; I25.2 Old myocardial infarction; Z88.0 Allergy status to penicillin; Z88.2 Allergy status to sulfonamides; Z88.8 Allergy status to other drugs, medicaments and biological substances; Z88.6 Allergy status to analgesic agent; Z91.010 Allergy to peanuts; Z88.1 Allergy status to other antibiotic agents; Z98.49 Cataract extraction status, unspecified eye; Z90.710 Acquired absence of both cervix and uterus